=== PATIENT | male | born 1970 | race Caucasian/White ===

== ENCOUNTER 2018-10-27 03:18 | Inpatient (IN) ==
[2018-10-27] MEDS ORDERED: 0.9 % Sodium Chloride 1,000 ML IVC SCH ×2 (08:45→18:51)
[2018-10-27] MEDS ORDERED: Naloxone 0.4 MG/ML INJ IVP PRN ×2 (09:32→18:51)
[2018-10-27] MEDS ORDERED: OXYCODONE Oral CONC 10 MG/0.5 ML ORAL.SYG SL ONE (09:58)
[2018-10-27] MEDS ORDERED: Albuterol 2.5 MG/3 ML NEBULIZER IH PRN ×2 (10:02→18:51)
[2018-10-27] MEDS ORDERED: Acetaminophen 325 MG TABLET PO PRN ×2 (10:05→18:51)
[2018-10-27] MEDS ORDERED: OXYCODONE Oral CONC 10 MG/0.5 ML ORAL.SYG SL PRN ×2 (10:05→10:06)
[2018-10-27] MEDS ORDERED: *HR* HYDROmorphone 2 MG/ML SYRINGE IVP PRN ×2 (10:06→18:51)
[2018-10-27] MEDS ORDERED: Acetaminophen IV 1,000 MG/100 ML INFUS..BTL IVPB ONE (10:07)
[2018-10-27 10:14] LABS: Basophils # 0.1 K/mcL (0.0-0.2); Basophils % 0.5 %; Eosinophils # 0.1 K/mcL (0.0-0.6); Eosinophils % 1.4 %; Hemoglobin 14.5 g/dL (12.9-16.9); Immature Granulocytes % 0.7 % (0-4); Lymphocytes # 2.2 K/mcL (0.6-4.6); Lymphocytes % 21.5 %; Mean Corpuscular HGB Conc 33.7 g/dL (31.6-35.5); Mean Platelet Volume 8.9 fL (9.4-12.4); Monocytes # 0.9 K/mcL (0.0-1.3); Monocytes % 8.6 %; Neutrophils # 6.9 K/mcL (1.6-8.9); Platelet Count 173 K/mcL (140-400); Red Blood Count 4.83 M/mcL (4.19-5.50); Red Cell Distribution Width 13.3 % (11.5-14.5); Segmented Neutrophils % 67.3 %
[2018-10-27] MEDS ORDERED: Nicotine 14 MG PATCH.TD24 TD SCH (10:15)
--- NOTE | 2018-10-27 10:16 | Internal Med History&Physical ---
Date of Encounter: 10/27/18 Time of Encounter: 09:45 Internal Medicine - H&P: HPI Chief complaint: Hip pain Admitted From: Hospital to Hospital Transfer Plans for Post Hospital Care: Transfer Intermediate Facility History of present illness: Mr. Cody is a 48 year old male with hx of IV drug abuse (heroin and meth) transferred from [place] ED with acute hip fracture. Mr Cody stated he currently resides in a drug rehab facility. He was sleeping when he rolled and fell off a top bunk. He landed on his L hip. He was taken to ED and found to have an acute hip fracture. He was transferred to [facility] for orthopedic care. Mr Cody denies significant medical history. He has noticed over the last month that he has been more dyspneic and his feet have been swollen. He has been evalulated in [place] and started on PO Lasix. He says he can walk about 100 yards before getting dyspneic. Denies chest pain. No dizziness. He does snore a lot and has been told he stops breathing at night. Denies HTN, DM, CAD or liver disease. Smoke 5-7 cigarettes a day now. Currently his issue is pain in his left hip. He was given IV pain meds in [place]. He is aware that this is going to affect his current drug rehab. His clinical supervisor contact and service clerks from the facility is present in the room and is aware of patient's need for pain control. He is aware that this will need to be dealt with at the rehab facility. Pt agrees to take opiates in this situation. Past Med Surg Social Fam HX - Past Medical History Medical history: hypertension, other Additional medical history: LOWER LEG EDEMA, REHAB 04/2018, ICE AND HEROIN IV DRUG USE Psychiatric history: anxiety, depression - Past Surgical History Surgical History: orthopedic, other Additional surgical history: rt leg - Social History Smoking Status: Current every day smoker Smokeless Tobacco Status: No Alcohol use: none Drug use: opiates, methamphetamine, IV Drug Use - Additional Family History Additional family history: Denies significant history Internal Medicine - H&P: Meds Sertraline [Zoloft] 50 mg PO DAILY 07/11/18 [History] Furosemide [Lasix] 20 mg PO DAILY #31 tablet 09/28/18 [Rx] Allergy/AdvReac Type Severity Reaction Status Date / Time morphine Allergy Hives Verified 10/27/18 02:24 All Systems PM: A 10-system review of systems was performed and is negative for pertinent findings except as documented above in the HPI. - Constitutional Constitutional: falls, no fatigue, no malaise - EENT Eyes: no dry eye, no loss of vision Ears: no decreased hearing Nose, mouth and throat: no epistaxis, no mouth lesions - Cardiovascular Cardiovascular ROS IM: dyspnea, dyspnea on exertion, no chest pain, no diaphoresis, no irregular heart rhythm, no lightheadedness, no orthopnea, no paroxysmal nocturnal dyspnea - Respiratory Respiratory: dyspnea, dyspnea on exertion, wheezing, snoring, no cough, no chest congestion, no excessive phlegm production, no change in phlegm color - Gastrointestinal Gastrointestinal: no abdominal pain, no diarrhea, no melena - Genitourinary Genitourinary ROS male: no difficulty urinating, no flank pain, no nocturia - Musculoskeletal Musculoskeletal ROS IM: no arthralgias Additional comments: See chief complaint. - Integumentary Integumentary IM: no erythema, no rash - Neurological Neurological ROS: no confusion, no numbness, no tremor(s) - Endocrine Endocrine IM: no excessive sweating, no flushing - Hematologic/Lymphatic Hematologic/Lymphatic: no easy bleeding - Allergic/Immunologic Allergic/Immunologic: no itchy eyes, no uticaria - Constitutional Vitals: Temp Pulse Resp BP Pulse Ox 98.3 F 78 19 117/66 96 10/27/18 07:48 10/27/18 07:48 10/27/18 07:48 10/27/18 07:48 10/27/18 07:48 General appearance: Present: A&O X 3, severe distress Exam: See below - Head Head exam: Present: normocephalic - Eye Eye exam: Present: EOMI, conjuntiva pink - ENT ENT exam: Present: mucous membranes dry - Neck Neck exam general surgery: Present: normal inspection. Absent: thyromegaly - Respiratory Respiratory exam: Present: decreased breath sounds, wheezes Additional comments: No rales or rhonchi. Wheezing present bilaterally -worse on L - Cardiovascular Cardiovascular exam: Present: distant heart sounds, RRR. Absent: +S3, +S4, systolic murmur, tachycardia - GI/Abdominal GI/Abdominal exam: Present: distended, normal bowel sounds, soft. Absent: tenderness - Extremities Exam Extremities exam: Present: tenderness, warm Additional comments: L leg shortened and externally rotated. - Neurological Exam Neurological exam: Present: alert, oriented X3, no focal deficits. Absent: motor sensory deficit - Psychiatric Psychiatric exam: Present: anxious - Skin Skin exam: Present: dry, warm. Absent: rash Internal Med - H&P Results - Impressions ITS Impressions Hip CT 10/27/18 06:53 IMPRESSION: Acute left femoral neck fracture with impaction and anterior apex angulation. D/ / 10/27/2018 09:03:04 Naresh George MD / earnold Interpreting Provider: Naresh George MD - Assessment and plan (1) Impacted fracture of left hip Current Visit: Yes Status: Acute Assessment and plan: Pt presented to ED after fall from a top bunk which resulted in L hip fracture Transferred to [facility] for orthopedic care. Currently only issue is pain. Admit to med surg NPO for surgery today. Pain control - opiates ordered. Pt and clinical supervisor contact and service clerks at drug rehab facility are aware of the risks of doing this. Anticipate will need skilled rehab following surgery. Qualifiers: Encounter type: initial encounter Fracture type: closed Qualified Code(s): S72.092A - Other fracture of head and neck of left femur, initial encounter for closed fracture (2) Fall involving bunk bed as cause of accidental injury Current Visit: Yes Status: Acute Assessment and plan: Pt fell from top bunk this AM resulting in hip fracture. See above. (3) COPD (chronic obstructive pulmonary disease) Current Visit: Yes Status: Suspected Assessment and plan: Pt has not been diagnosed with COPD in the past but clinically appears to be present. He has had progressive dyspnea over last month with associated wheezing. CXR negative EKG normal Will start Azithromycin for antiinflammatory effect Steroids IV today and follow with 4 days of PO prednisone Duonebs ordered. Echo ordered due to edema (? related to pulmonary HTN/R heart failure). Qualifiers: COPD type: COPD with acute exacerbation Qualified Code(s): J44.1 - Chronic obstructive pulmonary disease with (acute) exacerbation (4) NEIDA (obstructive sleep apnea) Current Visit: Yes Status: Suspected Assessment and plan: Pt relates snorning and apnea. Will need at least nocturnal oxygen study prior to discharge. (5) Tobacco abuse Current Visit: Yes Status: Chronic Assessment and plan: Nicotine patch ordered. Cessation counselling. - Time Spent With Patient Total time spent is greater than 50% in coordination of care (as documented) at patient's floor/unit and/or counseling patient: - VTE Documentation of Mechanical Device: Venous foot pump, device
[2018-10-27 10:34] LABS: BUN/Creatinine Ratio 25 (6-26); Blood Urea Nitrogen 19 mg/dL (6-20); Calcium 8.5 mg/dL (8.6-10.3); Carbon Dioxide 25 mEq/L (23-29); Chloride 108 mEq/L (98-107); Glucose 112 mg/dL (70-105); Osmolality,Calculated 295 (280-300); Potassium 4.5 mEq/L (3.5-5.1); Sodium 141 mEq/L (136-145); eGFR For Non-African Americans > 60 (> 60)
[2018-10-27] MEDS: MethylPREDNISolone 40 MG/ML VIAL IVP SCH ×2 (10:49→19:02)
[2018-10-27] MEDS ORDERED: Azithromycin 500 MG in D5% in Water 250 ML IVPB SCH (11:00)
[2018-10-27] MEDS ORDERED: Perflutren Lipid Microsphere 1.3 ML in 0.9 % Sodium Chloride 8.7 ML IVP ONE ×2 (11:45→18:51)
[2018-10-27] MEDS: Ipratropium/Albuterol Neb 3 ML IH SCH ×3 (11:45→21:51)
[2018-10-27] MEDS ORDERED: Ethanol\\Acetic Acid\\Na Ace\\Ben 1,000 ML IRRIG.SOLN IR ONE (13:21)
--- NOTE | 2018-10-27 13:36 | Anesthesia Evaluation PreOp ---
Date of Encounter: 10/27/18 Time of Encounter: 13:34 - Past History Planned Operation: L-Robotic Hip Cardiac History: HTN Pulmonary History: Smoker (<1ppd), COPD, Snore, NEIDA Dx (Not formally Dx), Other (Recent reports of TURPIN and BLE swelling over past month) CORPORATE ACCOUNTANT History: Other (Anxiety/depression) Other Medical History: Denies Any Significant HX Anesthesia History: No Prior Anesthetic Complications, Past Anesthesia (R-ankle) Alcohol Use: none Drug use: opiates, methamphetamine, IV Drug Use (Heroin & Meth (Pt currently resides in Drug Rehab Facility)) Medications and Allergies Sertraline [Zoloft] 50 mg PO DAILY 07/11/18 [History] Furosemide [Lasix] 20 mg PO DAILY #31 tablet 09/28/18 [Rx] Allergy/AdvReac Type Severity Reaction Status Date / Time morphine Allergy Hives Verified 10/27/18 02:24 - Meds/Allergy Pre-op Review Medications Reviewed: Yes Allergies Reviewed: Yes Beta Blockers on Current Med List: No Anesthesia Results - Labs 10/27/18 09:54 10/27/18 09:54 Laboratory Tests 10/27/18 10/27/18 10/27/18 03:02 09:54 09:54 WBC 10.2 Hgb 14.5 Hct 43.0 Plt Count 173 INR 0.9 Sodium 141 Potassium 4.5 Chloride 108 H Carbon Dioxide 25 BUN 19 Creatinine 0.76 Est GFR (Non-Af Amer) > 60 Calcium 8.5 L Laboratory Results Impressions Hip CT 10/27/18 06:53 IMPRESSION: Acute left femoral neck fracture with impaction and anterior apex angulation. D/ / 10/27/2018 09:03:04 Naresh George MD / earnold Interpreting Provider: Naresh George MD - Imaging EKG: image reviewed (76bpm - SINUS RHYTHM POSSIBLE RIGHT VENTRICULAR CONDUCTION DELAY Electronically Signed On 09-15-2018 15:59:55 EST by Leia Barnes) Anesthesia Exam Vital Signs Temp Pulse Resp BP Pulse Ox 10/27/18 11:45 14 112/73 96 10/27/18 11:16 98.8 F 87 17 112/73 96 10/27/18 10:26 98 F 87 18 125/76 95 10/27/18 07:48 98.3 F 78 19 117/66 96 10/27/18 05:34 98.5 F 72 16 135/78 95 Intake and Output 10/26/18 10/27/18 10/27/18 23:59 07:59 15:59 Intake Total 0 / 0 350 / 350 Balance 0 / 0 350 / 350 Intake: IV Fluids 350 / 350 Ofirmev 1,000 mg/100 ml 1,000 100 / 100 mg In 100 ml @ 400 mls/hr IVPB ONCE ONE Rx#:[id number] Zithromax 500 mg In Dextrose 5% 250 / 250 250 ML @ 252 mls/hr IVPB Q24H [facility] Rx#:[id number] Oral 0 / 0 0 / 0 Other: Meal Breakfast Percent of Meal Consumed 0% Weight 125.9 kg Patient Weight 10/27/18 23:59 Weight 125.9 kg Height: 5'10" Weight: 277# BMI = 40 NPO (# of Hours): MNoc - HEENT Pupil (Motor): Pupils equal, EOMI Mallampati: III Teeth: Edentulous Oral Opening: Greater than 3 - CORPORATE ACCOUNTANT LOC: Oriented CORPORATE ACCOUNTANT Motor: Normal RUE, Normal LUE, Normal RLE, Normal Face, Deficit LLE CORPORATE ACCOUNTANT Sensory: Normal: RUE, LUE, RLE, Face, Deficit: LLE - Cardiac Rhythm: Regular Murmur: None - Pulmonary Breath Sounds: bilateral Clear Respiratory Effort: Symmetrical Anesthesia Assess/Plan ASA Score: 3 (MO/ BMI = 40, Smoker, IVDA, NEIDA) Level of consciousness: Cooperative, Oriented, Tranquil Anesthetic Plan: General, Spinal Autologous Blood: Yes Anes Supervising Prov Stmt: PT seen/evaluated, R&B Discussed, questions answered and consent obtained. Mildred Campbell MD
[2018-10-27] MEDS ORDERED: *HR* FentaNYL (PF) 100 MCG/2 ML VIAL ONE (14:07)
[2018-10-27] MEDS ORDERED: *HR* Midazolam HCl 2 MG/2 ML VIAL ONE (14:07)
[2018-10-27] MEDS ORDERED: Ipratropium/Albuterol Neb 3 ML IH ONE (14:16)
[2018-10-27] MEDS ORDERED: KETAMINE HCL 50 MG/ML SYRINGE IV ONE ×2 (15:03→15:20)
[2018-10-27] MEDS ORDERED: *HR* Propofol 200 MG/20 ML VIAL IVP ONE ×2 (15:06→15:07)
[2018-10-27] MEDS ORDERED: Lidocaine -MPF 2% 2 ML VIAL ONE (15:06)
[2018-10-27] MEDS ORDERED: *HR* Succinylcholine 200 MG/10 ML VIAL IVP ONE (15:07)
--- NOTE | 2018-10-27 15:22 | Orthopedics Progress Note ---
Date of Encounter: 10/27/18 Time of Encounter: 15:20 Subjective Interval history: Patient seen this morning, patient with history of intravenous drug abuse,The patient reports being 6 months in recovery, patient fell off the top bunk at a rehabilitation facility. Patient denies head trauma. Patient presented to the ER with left hip pain. Initially the patient was oversedated when evaluated later this afternoon the patient was alert and oriented 3. Well-nourished well-developed moderate distress Left lower extremity shortened and external rotated Neurovascular intact Decreased range of motion secondary to pain X-rays reviewed show a displaced left femoral neck fracture. Based on the patient's age and significant history patient is recommended for left total hip replacement. Patient would like to the performed robotically. This requires a roland implant. Patient just wants to be out of hip pain. We reviewed the risks and benefits as well as recovery. All questions were answered. The patient agreed to this treatment plan and acknowledged an understanding of the treatment plan as described. Objective Vital signs: Vital Signs Temp Pulse Resp BP Pulse Ox 10/27/18 14:22 14 93 10/27/18 11:45 14 112/73 96 10/27/18 11:16 98.8 F 87 17 112/73 96 10/27/18 10:26 98 F 87 18 125/76 95 10/27/18 07:48 98.3 F 78 19 117/66 96 10/27/18 05:34 98.5 F 72 16 135/78 95 Intake and Output 10/26/18 10/27/18 10/27/18 23:59 07:59 15:59 Intake Total 0 / 0 350 / 350 Balance 0 / 0 350 / 350 Intake: IV Fluids 350 / 350 Ofirmev 1,000 mg/100 ml 1,000 100 / 100 mg In 100 ml @ 400 mls/hr IVPB ONCE ONE Rx#:[id number] Zithromax 500 mg In Dextrose 5% 250 / 250 250 ML @ 252 mls/hr IVPB Q24H [facility] Rx#:[id number] Oral 0 / 0 0 / 0 Other: Meal Breakfast Percent of Meal Consumed 0% Weight 125.9 kg Patient Weight 10/27/18 23:59 Weight 125.9 kg - Labs CBC & BMP: 10/27/18 09:54 10/27/18 09:54 Labs: Abnormal lab results MPV 8.9 fL (9.4-12.4) L 10/27/18 09:54 Chloride 108 mEq/L (98-107) H 10/27/18 09:54 Glucose 112 mg/dL (70-105) H 10/27/18 09:54 Calcium 8.5 mg/dL (8.6-10.3) L 10/27/18 09:54 - VTE Documentation of Mechanical Device: Venous foot pump, device Consult Discharge Plan - Plan Referrals: NONE,PCP [Primary Care Provider] -
--- NOTE | 2018-10-27 15:24 | Orthopedic Consult Note ---
Date of Encounter: 10/27/18 Time of Encounter: 08:25 Assessment and Plan (1) Fall involving bunk bed as cause of accidental injury Current Visit: Yes Status: Acute (2) Impacted fracture of left hip Current Visit: Yes Status: Acute Qualifiers: Encounter type: initial encounter Fracture type: closed Qualified Code( s): S72.092A - Other fracture of head and neck of left femur, initial encounter for closed fracture History of Present Illness Chief complaint: left hip fx HPI: Mr. Cody is a 48 year old male presents [facility] for left hip pain after falling out of top bunk and landing on hard floor. states that he was sleeping and when he awoke he had severe left hip pain and could not move. Denies history of broken bones or easy fractures. Patient is alert and oriented x 3. States he is in severe pain to the LLE. Obvious deformity noted on exam Tenderness to motion Neurovascualrly intact CT/CT OMI hip lt wo con IMPRESSION: Acute left femoral neck fracture with impaction and anterior apex angulation. D/ / 10/27/2018 09:03:04 Naresh George MD / eduardo Assessment Left hip fracture Plan Left hip total replacement for left hip fracture CT Omi completed Risks reviewed - patient denies any other concerns NPO Pain control prn via hospitalist Labs and ua and ekg ordered for preop Thank you for this consultation. Past Med Surg Social Fam HX - Past Medical History Medical history: hypertension, other Additional medical history: LOWER LEG EDEMA, REHAB 04/2018, ICE AND HEROIN IV DRUG USE Psychiatric history: anxiety, depression - Past Surgical History Surgical History: orthopedic, other Additional surgical history: rt leg - Social History Smoking Status: Current every day smoker Smokeless Tobacco Status: No Alcohol use: none Drug use: opiates, methamphetamine, IV Drug Use (Heroin & Meth (Pt currently resides in Drug Rehab Facility)) Medications and Allergies Sertraline [Zoloft] 50 mg PO DAILY 07/11/18 [History] Furosemide [Lasix] 20 mg PO DAILY #31 tablet 09/28/18 [Rx] Allergy/AdvReac Type Severity Reaction Status Date / Time morphine Allergy Hives Verified 10/27/18 02:24 All Systems Reviewed: The remainder of the systems were reviewed and are negative Physical Exam - Constitutional Vitals: Temp Pulse Resp BP Pulse Ox 98.8 F 87 14 112/73 93 10/27/18 11:16 10/27/18 11:16 10/27/18 14:22 10/27/18 11:45 10/27/18 14:22 Results - Labs Result Diagrams: 10/27/18 09:54 10/27/18 09:54 Labs: Abnormal lab results MPV 8.9 fL (9.4-12.4) L 10/27/18 09:54 Chloride 108 mEq/L (98-107) H 10/27/18 09:54 Glucose 112 mg/dL (70-105) H 10/27/18 09:54 Calcium 8.5 mg/dL (8.6-10.3) L 10/27/18 09:54 H & H 10/27/18 Range/Units 09:54 Hgb 14.5 (12.9-16.9) g/dL Hct 43.0 (37.5-50.1) % All other labs normal. Consult Discharge Plan - Plan Referrals: NONE,PCP [Primary Care Provider] -
[2018-10-27] MEDS ORDERED: Dexamethasone 4 MG/ML VIAL ONE (16:06)
[2018-10-27] MEDS ORDERED: Ondansetron 4 MG/2 ML VIAL ONE (16:06)
--- NOTE | 2018-10-27 16:14 | Anesthesia Procedures ---
Date of Encounter: 10/27/18 Time of Encounter: 15:35 Procedures: Anesthesia - Epidural/Spinal Patient ID/Chart reviewed: Yes Patient examined: Yes Consent Obtained: Yes Supplemental Oxygen: Mask Supplemental Oxygen Rate (L/min): 6 Sedation: Versed (mg): 2 Sedation: Fentanyl (mcg): 100 Site Prep: Aseptic Technique Patient position: right lateral decubitus Local Anesthetic: Lidocaine 1% Amount of Local Anesthetic used: 3 Interspace Used: L2-L3 Blood: No CSF: Yes Paresthesia: No Spinal Needle Gauge: 22 (25G Pencar attempt x 2. Successful SAB w/ 22G x 120mm Sprotte) Spinal Dose: Fentany 25mcg + 3mL x 0.05% Bupivicaine Procedure: Robotic L-total hip Vitals + FHT's: Vital Signs/O2 Sat/Glucose, Most Current Pulse Resp BP Pulse Ox 10/27/18 15:35 82 14 129/88 95 15:25 89 146/100 95 14:22 14 93 Anes Supervising Prov Stmt: Pt tolerated procedure well and without immediate complications. Mildred Campbell MD
[2018-10-27] MEDS ORDERED: Acetaminophen IV 1,000 MG/100 ML INFUS..BTL ONE (16:23)
--- NOTE | 2018-10-27 16:44 | Orthopedic Operative Note ---
Date of procedure: 10/27/18 Pre-op diagnosis: Displaced left femoral neck fracture Post-op diagnosis: same Procedure: Procedure: Left Total Hip Replacment robotic-assisted Estimated blood loss: 500 cc Hardware: Metal and polyethylene replacement. [place] DM Cup: 54 cup Femoral size 9 stem Head: 8 head with Holly LINDA drain Procedural Notes: Displaced femoral neck fracture, procedure performed with robotic assistance. 17 mm short operative versus nonoperative leg is measured by preoperative CT scan Operative procedure: The patient was brought to the operating room and placed on the operating room table. After general anesthesia was administered the patient was placed in the lateral decubitus position with the operative leg up. All pressure points were padded appropriately and the head was stabilized in the neutral position. The operative extremity was prepped and draped in the sterile surgical fashion patient received IV antibiotic prior to skin incision. 3 Steinmann pins were placed in the iliac crest 3 cm proximal to the anterior superior iliac spine this was for the robotic-assisted sensor. This was done through a small 2 cm incision. A standard posterior approach is made to the operative hip, the incision was made through the skin and subcutaneous tissue hemostasis was obtained with Bovie cautery. Using careful sharp dissection the fascia was identified and incised exposing the external rotators. The greater trochanter was marked, and length was measured at this time utilizing robotic assistance. The external rotators were released off the greater trochanter and tagged with #2 FiberWire suture. The capsule was T'd open and the hip was brought into internal rotation. The patient had a displaced fracture femoral neck, The femoral neck cut was made at the appropriate level roughly 15 mm proximal to the lesser trochanter aced on preoperative templating. An anterior capsulotomy was performed for the anterior retractor. Soft tissues removed from the acetabulum. The acetabulum reference point was confirmed. The acetabulum was then mapped with robotic assistance. Based on the preoperative plan the acetabulum was reamed in one step with a 53 reamer. The 54 acetabulum was impacted with robotic assistance and 41 degrees of abduction and 17 degrees of anteversion. The hip was brought back in to internal rotation and prepared with the box car washer followed by the canal finder followed by the reaming process to a size 9/10 broaching process in 20 degrees anteversion. It was broached up to the appropriate size 9 Trial reduction revealed leg lengths close to normal. The femoral implant was impacted in place in 20 degrees of anteversion. Trial reduction found the hip to be stable with 8 head and Holly. The trials were removed and the real implants were impacted in place. The hip was reduced, patient had robotic confirmed leg length of 3 mm longer than the contralateral side. The hip had excellent stability with forward flexion to 90 degrees adduction of 30 degrees and internal rotation of 60 degrees. The hip had no shuck. The hip sat with an antibacterial solution. It was irrigated out with 2 L of pulse irrigation. The Steinmann pins were removed. The hip was closed by the PA. Over a LINDA drain The deep tissue was irrigated and closed deep with #1 PDS suture superficially with 0 PDS suture and skin was closed with Dermabond and zip tie. The patient was placed in a sterile dressing and abduction pillow. The patient was extubated and transferred to the recovery room in stable condition. Anesthesia: GETA, spinal Surgeon: Vince Velazquez Was there an assistant project manager present: No Estimated blood loss (cc): 500 Condition: stable Disposition: PACU
--- NOTE | 2018-10-27 17:00 | Event Note ---
Date of Encounter: 10/27/18 Time of Encounter: 16:59 Pt had hip replacement today. Echo shows EF 45-50%. No prior echo. Pt started on Lisinopril and Coreg.
--- NOTE | 2018-10-27 18:19 | Anesthesia Evaluation Post Op ---
Addendum entered and electronically signed by Celina Zacarias CRNA 10/29/18 09:10: author also Original Note: Date of Encounter: 10/27/18 Time of Encounter: 18:18 - Vital Signs Vital Signs: Vital Signs - Last 8 Hours Temp Pulse Resp BP Pulse Ox 10/27/18 18:10 98 F 80 16 114/80 97 10/27/18 18:00 98 F 82 16 107/71 100 10/27/18 17:50 77 16 126/67 100 10/27/18 17:40 75 16 123/89 100 10/27/18 17:30 98 F 81 18 106/64 98 10/27/18 15:41 89 146/100 95 10/27/18 14:22 14 93 10/27/18 11:45 14 112/73 96 10/27/18 11:16 98.8 F 87 17 112/73 96 10/27/18 10:26 98 F 87 18 125/76 95 Intake and Output 10/27/18 10/27/18 10/27/18 07:59 15:59 23:59 Intake Total 0 / 0 350 / 350 Output Total 600 / 600 Balance 0 / 0 350 / 350 -600 / -600 Intake: IV Fluids 350 / 350 Ofirmev 1,000 mg/100 ml 1,000 100 / 100 mg In 100 ml @ 400 mls/hr IVPB ONCE ONE Rx#:[id number] Zithromax 500 mg In Dextrose 5% 250 / 250 250 ML @ 252 mls/hr IVPB Q24H [facility] Rx#:[id number] Oral 0 / 0 0 / 0 Output: Estimated Blood Loss 500 / 500 Wound Drainage 100 / 100 Other: Meal Breakfast Percent of Meal Consumed 0% Weight 125.9 kg Patient Weight 10/27/18 23:59 Weight 125.9 kg - Lungs Lungs: Clear Ascult./Percussion - Airway Airway: Non-obstructed - Cardiovascular Regular Rate, Baseline Rhythm - Mental Status Mental Status: Alert & Oriented, Answers Appropriately - Pain Pain Scale: 0 Pain Scale used: Numeric (1 - 10) - Nausea Vomiting Nausea Vomiting: Not Present - Hydration Hydration: Ice chips - Discharge PostOp Status: Transfer Patient to floor
[2018-10-27 18:23] LABS: Hematocrit 39.7 % (37.5-50.1); Hemoglobin 13.1 g/dL (12.9-16.9)
[2018-10-27] MEDS ORDERED: Sennosides 8.6 MG TABLET PO PRN (18:51)
[2018-10-27] MEDS ORDERED: *HR* Promethazine 25 MG/ML VIAL IVP PRN (18:51)
[2018-10-27] MEDS ORDERED: Ondansetron 4 MG/2 ML VIAL IVP PRN (18:51)
[2018-10-27] MEDS ORDERED: MOM Conc 10 ML UD.LIQ PO PRN (18:51)
[2018-10-27] MEDS ORDERED: Temazepam 15 MG CAPSULE PO PRN (18:51)
[2018-10-27] MEDS ORDERED: ceFAZolin 3,000 MG in 0.9 % Sodium Chloride 100 ML IVPB SCH (18:51)
[2018-10-27] MEDS ORDERED: Ringers Solution, Lactated 1,000 ML IVC SCH (18:51)
[2018-10-27] MEDS: Ascorbic Acid 500 MG TABLET PO SCH (20:34)
[2018-10-27] MEDS: OXYCODONE Oral CONC 10 MG/0.5 ML ORAL.SYG SL PRN (22:27)
[2018-10-28] MEDS: ceFAZolin 3,000 MG in 0.9 % Sodium Chloride 100 ML IVPB SCH ×2 (01:19→09:20)
[2018-10-28] MEDS: Ipratropium/Albuterol Neb 3 ML IH SCH ×4 (04:43→22:08)
[2018-10-28] MEDS: OXYCODONE Oral CONC 10 MG/0.5 ML ORAL.SYG SL PRN ×3 (05:03→19:50)
[2018-10-28] MEDS ORDERED: *HR* Enoxaparin 30 MG/0.3 ML SYRINGE SQ SCH (06:00)
[2018-10-28 06:07] LABS: Hematocrit 31.3 % (37.5-50.1)
[2018-10-28 06:08] LABS: Hemoglobin 10.7 g/dL (12.9-16.9)
--- NOTE | 2018-10-28 08:09 | Orthopedics Progress Note ---
Date of Encounter: 10/28/18 Time of Encounter: 08:08 Subjective Interval history: Patient was seen this morning doing well without complaints. Afebrile vital signs stable. Operative extremity: Neurovascularly intact Dressing clean dry and intact Calves nontender Assessment and plan: Continue with postoperative care Hematocrit 31 plan to DC LINDA tomorrow. Objective Vital signs: Vital Signs Temp Pulse Resp BP Pulse Ox 10/28/18 04:43 20 94 10/28/18 04:04 97.7 F 98 16 97/41 94 10/27/18 22:57 97.9 F 80 17 129/75 98 10/27/18 21:51 18 94 10/27/18 19:32 98.3 F 84 15 114/66 94 10/27/18 18:31 97.9 F 85 18 103/72 95 10/27/18 18:10 98 F 80 16 114/80 97 10/27/18 18:00 98 F 82 16 107/71 100 10/27/18 17:50 77 16 126/67 100 10/27/18 17:40 75 16 123/89 100 10/27/18 17:30 98 F 81 18 106/64 98 10/27/18 15:41 89 146/100 95 10/27/18 14:22 14 93 10/27/18 11:45 14 112/73 96 10/27/18 11:16 98.8 F 87 17 112/73 96 10/27/18 10:26 98 F 87 18 125/76 95 Intake and Output 10/27/18 10/28/18 10/28/18 23:59 07:59 15:59 Output Total 1165 / 1165 570 / 570 Balance -1165 / -1165 -570 / -570 Output: Urine 200 / 200 375 / 375 Estimated Blood Loss 500 / 500 Wound Drainage 465 / 465 195 / 195 Left Hip 365 / 365 195 / 195 - Labs CBC & BMP: 10/28/18 04:50 10/27/18 09:54 Labs: Abnormal lab results Hgb 10.7 g/dL (12.9-16.9) L D 10/28/18 04:50 Hct 31.3 % (37.5-50.1) L 10/28/18 04:50 MPV 8.9 fL (9.4-12.4) L 10/27/18 09:54 Chloride 108 mEq/L (98-107) H 10/27/18 09:54 Glucose 112 mg/dL (70-105) H 10/27/18 09:54 Calcium 8.5 mg/dL (8.6-10.3) L 10/27/18 09:54 - VTE Documentation of Mechanical Device: Venous foot pump, device Consult Discharge Plan - Plan Referrals: NONE,PCP [Primary Care Provider] -
[2018-10-28] MEDS ORDERED: Melatonin 3 MG TABLET PO PRN (08:29)
[2018-10-28] MEDS ORDERED: traZODone 50 MG TABLET PO PRN (08:29)
[2018-10-28] MEDS: Ascorbic Acid 500 MG TABLET PO SCH ×2 (09:19→16:20)
[2018-10-28] MEDS: Acetaminophen 325 MG TABLET PO SCH ×4 (09:19→21:49)
[2018-10-28] MEDS: Multivit/Ca/Min/Fe/FA 1 TAB TABLET PO SCH (09:19)
[2018-10-28] MEDS: Nicotine 14 MG PATCH.TD24 TD SCH (09:20)
[2018-10-28 10:00] LABS: Bilirubin,Urine Negative (Negative); Blood,Urine Negative (Negative); Clarity,Urine Clear (Clear); Color,Urine Yellow (Yellow); Glucose,Urine (UA) >=1000 mg/dL (Normal); Ketones,Urine Negative (Negative); Leukocyte Esterase,Urine Negative (Negative); Nitrite,Urine Negative (Negative); Protein,Urine Negative (Neg-Trace); Specific Gravity,Urine 1.027 (1.010-1.025); Urobilinogen,Urine Normal (Normal)
[2018-10-28] MEDS ORDERED: Azithromycin 500 MG in D5% in Water 250 ML IVPB SCH (11:00)
[2018-10-28] MEDS: Ketorolac 15 MG/ML VIAL IVP PRN ×2 (11:13→18:51)
--- NOTE | 2018-10-28 12:16 | Event Note ---
Date of Encounter: 10/28/18 Time of Encounter: 11:40 PCR - POD#1 s/p Left Total Hip Replacment robotic-assisted 10/27/18 Patient seen at bedside, without complaints. A&O x 3 Afebrile, vital signs stable. Dressings c/d/i. LINDA drain in place currently with roughly 75ml bloody drainage. Documentation states 365ml yesterday, 195ml so far today. Will plan to DC drain tomorrow if output decreases Labs reviewed. H/H - 10.7/31.3 stable, asymptomatic Pain control: inadequate at the moment but he is due for next dose of oxycodone, will have nurse reassess pain level after this next dose. will add lidoderm patch if pain still not controlled Participating in PT. All questions and concerns addressed. Educated on use of incentive spirometer. Encouraged ambulation and proper hydration. Patient educated on post-operative restrictions and post-operative care. Assessment and plan: Continue with postoperative care Discharge plan: home with when discharged
--- NOTE | 2018-10-28 16:04 | Internal Med Progress Note ---
Hospitalist Progress Note - Encounter Date of Encounter: 10/28/18 Time of Encounter: 16:01 - Subjective Interval History: Pt states he is having pain and difficult time moving around. States he was able to get up with therapy but it was painful. Is SOB w cough but improved from yesterday. - Exam Vitals: Temp Pulse Resp BP Pulse Ox 98.6 F 98 13 133/79 96 10/28/18 12:45 10/28/18 12:45 10/28/18 12:45 10/28/18 12:45 10/28/18 12:45 Exam: General: NAD, good eye contact Thoracic: does have expiratory wheezing Cardio: Normal S1 and S2, regular rate and rhythm Abdomen: Soft, nontender, nondistended Extremities: Warm, well perfused. DP pulses 2+ b/l. No edema. L lateral thigh with horizontal incision w drain in place draining serosanguinous fluid Neuro: Awake, fully oriented. Speech fluent - Summary of Assessment and Plan Summary of Assessment and Plan: Marcus Cody is a 48 M w hx smoker, polysubstance abuse including IVDA, COPD, obesity, who p/w L hip pain after a fall, XR showing broken L hip, taken to OR 10/27 by Ortho for L TARUN. L hip fx s/p TARUN 10/27: - Ortho following, appreciate recs - drain in place, leave today given output - start xarelto 10 daily tomorrow - PT/OT working w patient, able to ambulate briefly today COPD: new dx for patient, will need outpatient f/u and PFTs - stop steroids due to surgery above - continue nebs and azithro Acute blood loss anemia: following surgery, not symptomatic, will monitor Smoker: nicotine patch offered Hx IVDA and polysubstance abuse (heroin, meth)(poa): currently in group residence for drug treatment, will significantly limit opioids today now pt is post-op - d/c dilaudid iv - limit oxy to 5 q6h prn breakthrough - start tylenol 1g qid prn first line - start toradol 15 q6h second line Per PT/OT, plan for d/c to SNF for rehab prior to returning back to group drug rehab facility - Time Spent with Patient Total time spent is greater than 50% in coordination of care (as documented) at patient's floor/unit and/or counseling patient: Internal Medicine: Result - Labs CBC & Chem 7: 10/28/18 04:50 10/27/18 09:54 Labs: Short CBC 10/27/18 10/28/18 Range/Units 17:55 04:50 Hgb 13.1 10.7 L D (12.9-16.9) g/dL Hct 39.7 31.3 L (37.5-50.1) % Urine 10/28/18 Range/Units 08:10 Urine Color Yellow (Yellow) Urine Clarity Clear (Clear) Urine pH 6.0 (5.0-8.0) pH Units Ur Specific [place] 1.027 H (1.010-1.025) Urine Protein Negative (Neg-Trace) mg/dL Urine Glucose (UA) >=1000 H (Normal) mg/dL - Impressions Impressions Hip CT 10/27/18 06:53 IMPRESSION: Acute left femoral neck fracture with impaction and anterior apex angulation. D/ / 10/27/2018 09:03:04 Naresh George MD / [facility] Interpreting Provider: Naresh George MD Echocardiogram 10/27/18 10:01 Impressions: LVEF 45-50%. Mild left ventricular diastolic dysfunction. Right ventricle was not well visualized but appears grossly normal Unable to estimate RVSP due to lack of TR jet. No obvious significant valvular dysfunction. Left Ventricular Wall Motion: Rest Echo Findings The apex, apical inferior, mid inferior, basal inferior, apical anterior, mid anterior, basal anterior, apical septal, mid inferior septal, basal inferior septal, apical lateral, mid anterior lateral, basal anterior lateral, mid anterior septal, mid inferior lateral, basal anterior septal and basal inferior lateral casarez were hypokinetic. Findings: Study Quality * Technically sub-optimal due to poor echocardiographic windows. ECG Findings * Normal sinus rhythm. Left Ventricle * LVEF 45-50%. * Mild left ventricular diastolic dysfunction. * Definity echo contrast was used. Right Ventricle * Right ventricle was not well visualized but appears grossly normal Left Atrium * Normal left atrial size. Right Atrium * Normal right atrial size. Interatrial Septum * Interatrial septum not well evaluated. Aortic Valve * Aortic valve not well visualized. * No aortic regurgitation. * No aortic stenosis. Mitral Valve * No mitral regurgitation. * No mitral stenosis. * Mitral valve not well visualized. Tricuspid Valve * Unable to estimate RVSP due to lack of TR jet. * No tricuspid stenosis. * Trace tricuspid regurgitation. * Tricuspid valve not well visualized. Pulmonic Valve * Pulmonic valve is not well visualized. Aorta * Normally sized aortic root. Pericardium * The pericardium appears normal. IVC * The IVC is not well evaluated. Pulmonary Artery * Pulmonary artery not well visualized. Hip X-Ray 10/27/18 13:54 IMPRESSION: Baseline study status post left hip arthroplasty. No evidence of acute postoperative complication. D/ / 10/27/2018 17:59:01 Sunny Gomez MD / [facility] Interpreting Provider: Sunny Gomez MD - VTE Documentation of Mechanical Device: Venous foot pump, device Consult Discharge Plan - Plan Referrals: NONE,PCP [Primary Care Provider] -
--- NOTE | 2018-10-28 21:16 | Electrocardiograph Report ---
[address] [place], [place] [address] Test Date: 2018-10-27 Pat Name: Marcus Cody Department: 114 Room: [facility] Gender: M Certified Legal Investigator: : [id number] Requested By: Elda Parsons Order Number: [id number] Reading MD: Leia Barnes Measurements Intervals [place] Rate: 80 P: 39 AR: 157 QRS: 44 QRSD: 98 T: 39 QT: 366 QTc: 402 Interpretive Statements SINUS RHYTHM Electronically Signed On 10-28-2018 21:15:11 EST by Leia Barnes
[2018-10-28] MEDS: Furosemide 20 MG TABLET PO SCH (21:49)
[2018-10-28] MEDS: Budesonide/Formoterol 160/4.5 1 PUFF INH IH SCH (22:07)
[2018-10-29] MEDS: Ketorolac 15 MG/ML VIAL IVP PRN ×3 (01:07→18:20)
[2018-10-29] MEDS: OXYCODONE Oral CONC 10 MG/0.5 ML ORAL.SYG SL PRN ×3 (02:17→21:13)
[2018-10-29] MEDS ORDERED: OXYCODONE Oral CONC 10 MG/0.5 ML ORAL.SYG SL ONE (03:46)
[2018-10-29 04:37] LABS: Hematocrit 27.6 % (37.5-50.1); Hemoglobin 9.4 g/dL (12.9-16.9); Mean Corpuscular HGB Conc 34.1 g/dL (31.6-35.5); Mean Corpuscular Hemoglobin 30.2 pg (28.0-33.3); Mean Corpuscular Volume 88.7 fL (83.0-100.0); Mean Platelet Volume 9.2 fL (9.4-12.4); Platelet Count 154 K/mcL (140-400); Red Blood Count 3.11 M/mcL (4.19-5.50); Red Cell Distribution Width 13.9 % (11.5-14.5)
[2018-10-29] MEDS: Ipratropium/Albuterol Neb 3 ML IH SCH ×4 (04:41→22:44)
[2018-10-29 04:53] LABS: BUN/Creatinine Ratio 23 (6-26); Blood Urea Nitrogen 17 mg/dL (6-20); Calcium 7.8 mg/dL (8.6-10.3); Carbon Dioxide 26 mEq/L (23-29); Chloride 105 mEq/L (98-107); Glucose 107 mg/dL (70-105); Osmolality,Calculated 288 (280-300); Potassium 3.8 mEq/L (3.5-5.1); Sodium 138 mEq/L (136-145); eGFR For Non-African Americans > 60 (> 60)
--- NOTE | 2018-10-29 06:40 | Orthopedics Progress Note ---
Date of Encounter: 10/29/18 Time of Encounter: 06:39 - Assessment and Plan (1) Acute blood loss anemia Current Visit: Yes Status: Acute Subjective Interval history: Patient was seen this morning doing well without complaints. Afebrile vital signs stable. Operative extremity: Neurovascularly intact Dressing clean dry and intact Calves nontender Assessment and plan: Continue with postoperative care [id number] DC drain stable for discharge Objective Vital signs: Vital Signs Temp Pulse Resp BP Pulse Ox 10/29/18 04:41 18 94 10/29/18 03:27 98.0 F 87 16 101/63 93 10/29/18 01:22 97.9 F 88 16 104/66 95 10/28/18 22:15 16 99 10/28/18 21:49 90 10/28/18 19:01 97.9 F 98 16 103/62 96 10/28/18 16:46 97.4 F L 101 16 106/59 96 10/28/18 12:45 98.6 F 98 13 133/79 96 10/28/18 10:46 16 96 10/28/18 09:54 98.2 F 100 14 133/79 98 10/28/18 08:27 98.1 F 96 14 116/71 94 Intake and Output 10/28/18 10/28/18 10/29/18 15:59 23:59 07:59 Output Total 150 / 150 415 / 415 445 / 445 Balance -150 / -150 -415 / -415 -445 / -445 Output: Urine 350 / 350 350 / 350 Wound Drainage 150 / 150 65 / 65 95 / 95 Left Hip 150 / 150 65 / 65 95 / 95 - Labs CBC & BMP: 10/29/18 04:05 10/29/18 04:05 Labs: Abnormal lab results RBC 3.11 M/mcL (4.19-5.50) L 10/29/18 04:05 Hgb 9.4 g/dL (12.9-16.9) L 10/29/18 04:05 Hct 27.6 % (37.5-50.1) L 10/29/18 04:05 MPV 9.2 fL (9.4-12.4) L 10/29/18 04:05 Glucose 107 mg/dL (70-105) H 10/29/18 04:05 Calcium 7.8 mg/dL (8.6-10.3) L 10/29/18 04:05 Ur Specific [place] 1.027 (1.010-1.025) H 10/28/18 08:10 Urine Glucose (UA) >=1000 mg/dL (Normal) H 10/28/18 08:10 - VTE Documentation of Mechanical Device: Venous foot pump, device Consult Discharge Plan - Plan Referrals: NONE,PCP [Primary Care Provider] -
[2018-10-29] MEDS: *HR* Rivaroxaban 10 MG TABLET PO SCH (06:53)
[2018-10-29] MEDS ORDERED: predniSONE 20 MG TABLET PO SCH ×2 (09:00)
[2018-10-29] MEDS: Ascorbic Acid 500 MG TABLET PO SCH ×2 (09:35→17:26)
[2018-10-29] MEDS: Furosemide 20 MG TABLET PO SCH (09:36)
[2018-10-29] MEDS: Nicotine 14 MG PATCH.TD24 TD SCH (09:37)
[2018-10-29] MEDS: Multivit/Ca/Min/Fe/FA 1 TAB TABLET PO SCH (09:38)
[2018-10-29] MEDS: Acetaminophen 325 MG TABLET PO SCH ×4 (09:38→21:14)
[2018-10-29] MEDS: Azithromycin 250 MG TABLET PO SCH (09:40)
[2018-10-29] MEDS: Budesonide/Formoterol 160/4.5 1 PUFF INH IH SCH ×2 (09:47→22:44)
--- NOTE | 2018-10-29 16:28 | Event Note ---
Date of Encounter: 10/29/18 Time of Encounter: 12:20 PCR - POD#2 s/p Left Total Hip Replacment robotic-assisted 10/27/18 Patient seen at bedside, without complaints. A&O x 3 Afebrile, vital signs stable. Dressings c/d/i. LINDA drain removed today. Dressings have some drainage over this site. Continue with pressure dressing. Labs reviewed. H/H - 9.4/27.6 stable, asymptomatic Pain control: inadequate, will add lidoderm patch but otherwise leave rest of pain control to primary team. patient states he does not want "strong stuff" due to his history of drug abuse Participating in PT. All questions and concerns addressed. Educated on use of incentive spirometer. Encouraged ambulation and proper hydration. Patient educated on post-operative restrictions and post-operative care. Assessment and plan: Continue with postoperative care Discharge plan: ECF, awaiting acceptance to [facility], likely thursday Instructions to include in ECF continuity: Opsite dressing, leave intact until first post-operative visit. If dressing becomes >50% saturated, contact office, remove dressing and place appropriate dressing in its place. Do not allow for dressing to get wet. Zipline/Vicente in place, plan to remove at post-operative day #14-16. Total Joint Precautions x 6 weeks Apply cold therapy wrap 3-6x/day for 20 minutes at a time. Encourage ambulation throughout the day Use Incentive spirometer 10x/hour. Elevate affected extremity above heart as tolerated. Brace: Wear hip abductor brace at night x 6 weeks.
--- NOTE | 2018-10-29 16:42 | Internal Med Progress Note ---
Hospitalist Progress Note - Encounter Date of Encounter: 10/29/18 Time of Encounter: 16:39 - Subjective Interval History: Pt continues to complain of pain. Does get some relief with toradol and tylenol but not fully. Discussed with pt about goals to decrease, not eliminate, pain. Worked with PT. LINDA drain removed from Ortho. - Exam Vitals: Temp Pulse Resp BP Pulse Ox 98.6 F 94 18 142/72 94 10/29/18 12:30 10/29/18 12:30 10/29/18 15:23 10/29/18 12:30 10/29/18 15:23 Exam: General: NAD, good eye contact, uncomfortable Thoracic: does have expiratory wheezing slightly improved today Cardio: Normal S1 and S2, regular rate and rhythm Abdomen: Soft, nontender, nondistended Extremities: Warm, well perfused. DP pulses 2+ b/l. No edema. L lateral thigh with 3 incisions dressed c/d/i Neuro: Awake, fully oriented. Speech fluent - Summary of Assessment and Plan Summary of Assessment and Plan: Marcus Cdoy is a 48 M w hx smoker, polysubstance abuse including IVDA, COPD, obesity, who p/w L hip pain after a fall, XR showing broken L hip, taken to OR 10/27 by Ortho for L TARUN. L hip fx s/p TARUN 10/27: - Ortho following, appreciate recs, drain removed today - start xarelto 10 daily, through 11/23 - PT/OT working w patient - pain control as below COPD: new dx for patient, will need outpatient f/u and PFTs - no steroids due to surgery above - continue nebs and azithro Acute blood loss anemia: following surgery, not symptomatic, will monitor Smoker: nicotine patch offered Hx IVDA and polysubstance abuse (heroin, meth): currently in group residence for drug treatment, will significantly limit opioids today now pt is post-op - start tylenol 1g qid prn first line - start toradol 15 q6h second line - oxy to 5 q6h prn breakthrough Per PT/OT, plan for d/c to SNF for rehab prior to returning back to group drug rehab facility, per SW will not occur until Thursday - Time Spent with Patient Total time spent is greater than 50% in coordination of care (as documented) at patient's floor/unit and/or counseling patient: Internal Medicine: Result - Labs CBC & Chem 7: 10/29/18 04:05 10/29/18 04:05 Labs: Short CBC 10/29/18 Range/Units 04:05 WBC 9.0 (4.3-11.1) K/mcL Hgb 9.4 L (12.9-16.9) g/dL Hct 27.6 L (37.5-50.1) % Plt Count 154 (140-400) K/mcL BMP 10/29/18 04:05 Sodium 138 Potassium 3.8 Chloride 105 Carbon Dioxide 26 BUN 17 Creatinine 0.74 Glucose 107 H Calcium 7.8 L - VTE Documentation of Mechanical Device: Venous foot pump, device Consult Discharge Plan - Plan Referrals: NONE,PCP [Primary Care Provider] -
[2018-10-30] MEDS: Ketorolac 15 MG/ML VIAL IVP PRN ×3 (02:00→21:36)
[2018-10-30] MEDS: OXYCODONE Oral CONC 10 MG/0.5 ML ORAL.SYG SL PRN ×3 (03:37→15:58)
[2018-10-30] MEDS: Ipratropium/Albuterol Neb 3 ML IH SCH ×4 (04:02→23:40)
[2018-10-30] MEDS: *HR* Rivaroxaban 10 MG TABLET PO SCH ×2 (06:44→17:17)
[2018-10-30 06:56] LABS: Hematocrit 27.1 % (37.5-50.1); Hemoglobin 9.2 g/dL (12.9-16.9)
[2018-10-30] MEDS: Furosemide 20 MG TABLET PO SCH (08:18)
[2018-10-30] MEDS: Ascorbic Acid 500 MG TABLET PO SCH ×2 (08:18→17:17)
[2018-10-30] MEDS: Acetaminophen 325 MG TABLET PO SCH ×4 (08:18→20:01)
[2018-10-30] MEDS: Multivit/Ca/Min/Fe/FA 1 TAB TABLET PO SCH (08:18)
[2018-10-30] MEDS: Azithromycin 250 MG TABLET PO SCH (08:19)
[2018-10-30] MEDS: Budesonide/Formoterol 160/4.5 1 PUFF INH IH SCH ×2 (10:22→23:40)
[2018-10-30] MEDS: Nicotine 14 MG PATCH.TD24 TD SCH (11:20)
--- NOTE | 2018-10-30 13:59 | Internal Med Progress Note ---
Hospitalist Progress Note - Encounter Date of Encounter: 10/30/18 Time of Encounter: 13:57 - Subjective Interval History: Pt continues to complain of pain, different reason each day but always complaining. Mentions that he was able to ambulate to bathroom yesterday without too much distress. No abd pain or diarrhea. No bleeding from incisions. SOB and wheezing resolved. - Exam Vitals: Temp Pulse Resp BP Pulse Ox 97.9 F 79 17 120/74 96 10/30/18 10:59 10/30/18 10:59 10/30/18 10:59 10/30/18 10:59 10/30/18 10:59 Exam: General: NAD, good eye contact, uncomfortable Thoracic: no wheezing today, lungs clear Cardio: Normal S1 and S2, regular rate and rhythm Abdomen: Soft, nontender, nondistended Extremities: Warm, well perfused. DP pulses 2+ b/l. No edema. L lateral thigh with 3 incisions dressed c/d/i Neuro: Awake, fully oriented. Speech fluent - Summary of Assessment and Plan Summary of Assessment and Plan: Marcus Cody is a 48 M w hx smoker, polysubstance abuse including IVDA, COPD, obesity, who p/w L hip pain after a fall, XR showing broken L hip, taken to OR 10/27 by Ortho for L TARUN. L hip fx s/p TARUN 10/27: improving - Ortho following, appreciate recs - start xarelto 10 daily, through 11/23 - PT/OT working w patient - pain control as below COPD: new dx for patient, will need outpatient f/u and PFTs, improved - no steroids due to surgery above - continue nebs and azithro Acute blood loss anemia: following surgery, not symptomatic, will monitor Smoker: nicotine patch offered Hx IVDA and polysubstance abuse (heroin, meth): currently in group residence for drug treatment, will significantly limit opioids today now pt is post-op - start tylenol 1g qid prn first line - start toradol 15 q6h second line - oxy to 5 q6h prn breakthrough Per PT/OT, plan for d/c to SNF for rehab prior to returning back to group drug rehab facility, per SW will not occur until Thursday - Time Spent with Patient Total time spent is greater than 50% in coordination of care (as documented) at patient's floor/unit and/or counseling patient: Internal Medicine: Result - Labs CBC & Chem 7: 10/30/18 06:35 10/29/18 04:05 Labs: Short CBC 10/30/18 Range/Units 06:35 Hgb 9.2 L (12.9-16.9) g/dL Hct 27.1 L (37.5-50.1) % - VTE Documentation of Mechanical Device: Venous foot pump, device Consult Discharge Plan - Plan Referrals: NONE,PCP [Primary Care Provider] -
[2018-10-31] MEDS: OXYCODONE Oral CONC 10 MG/0.5 ML ORAL.SYG SL PRN ×4 (00:26→22:08)
[2018-10-31] MEDS: Ketorolac 15 MG/ML VIAL IVP PRN ×3 (03:51→18:53)
[2018-10-31] MEDS: Ipratropium/Albuterol Neb 3 ML IH SCH ×4 (04:40→22:16)
--- NOTE | 2018-10-31 06:36 | Orthopedics Progress Note ---
Date of Encounter: 10/31/18 Time of Encounter: 06:36 - Assessment and Plan (1) Acute blood loss anemia Current Visit: Yes Status: Acute Subjective Interval history: Patient was seen this morning doing well without complaints. Afebrile vital signs stable. Operative extremity: Neurovascularly intact Dressing minimal drainage dry and intact Calves nontender Assessment and plan: Continue with postoperative care Awaiting placement Objective Vital signs: Vital Signs Temp Pulse Resp BP Pulse Ox 10/31/18 04:41 18 94 10/31/18 02:20 98.0 F 79 18 120/64 97 10/30/18 23:42 18 95 10/30/18 22:32 97.6 F 80 20 105/64 97 10/30/18 20:14 98.2 F 85 19 114/65 96 10/30/18 16:05 16 108/64 94 10/30/18 15:38 97.9 F 85 18 108/64 93 10/30/18 10:59 97.9 F 79 17 120/74 96 10/30/18 10:20 16 112/71 96 10/30/18 07:23 97.7 F 86 18 112/71 97 Intake and Output 10/30/18 10/30/18 10/31/18 15:59 23:59 07:59 Intake Total 950 / 950 Output Total 400 / 400 350 / 350 Balance -400 / -400 600 / 600 Intake: Oral 950 / 950 Output: Urine 400 / 400 350 / 350 Other: Weight 127.4 kg Patient Weight 10/31/18 23:59 Weight 127.4 kg - Labs CBC & BMP: 10/30/18 06:35 10/29/18 04:05 Labs: Abnormal lab results RBC 3.11 M/mcL (4.19-5.50) L 10/29/18 04:05 Hgb 9.2 g/dL (12.9-16.9) L 10/30/18 06:35 Hct 27.1 % (37.5-50.1) L 10/30/18 06:35 MPV 9.2 fL (9.4-12.4) L 10/29/18 04:05 Glucose 107 mg/dL (70-105) H 10/29/18 04:05 POC Glucose 139 mg/dL (70-99) H 10/30/18 22:31 Calcium 7.8 mg/dL (8.6-10.3) L 10/29/18 04:05 Ur Specific [place] 1.027 (1.010-1.025) H 10/28/18 08:10 Urine Glucose (UA) >=1000 mg/dL (Normal) H 10/28/18 08:10 - VTE Documentation of Mechanical Device: Venous foot pump, device Consult Discharge Plan - Plan Referrals: NONE,PCP [Primary Care Provider] -
[2018-10-31 07:10] LABS: Hemoglobin 9.7 g/dL (12.9-16.9); Mean Corpuscular HGB Conc 33.4 g/dL (31.6-35.5); Mean Corpuscular Hemoglobin 29.7 pg (28.0-33.3); Mean Corpuscular Volume 88.7 fL (83.0-100.0); Mean Platelet Volume 8.7 fL (9.4-12.4); Platelet Count 173 K/mcL (140-400); Red Blood Count 3.27 M/mcL (4.19-5.50); Red Cell Distribution Width 13.5 % (11.5-14.5)
[2018-10-31 07:28] LABS: BUN/Creatinine Ratio 24 (6-26); Blood Urea Nitrogen 17 mg/dL (6-20); Calcium 8.5 mg/dL (8.6-10.3); Carbon Dioxide 27 mEq/L (23-29); Chloride 103 mEq/L (98-107); Glucose 110 mg/dL (70-105); Osmolality,Calculated 282 (280-300); Potassium 4.1 mEq/L (3.5-5.1); Sodium 135 mEq/L (136-145); eGFR For Non-African Americans > 60 (> 60)
[2018-10-31] MEDS: Ascorbic Acid 500 MG TABLET PO SCH ×2 (08:22→15:53)
[2018-10-31] MEDS: Furosemide 20 MG TABLET PO SCH (08:23)
[2018-10-31] MEDS: Acetaminophen 325 MG TABLET PO SCH (08:23)
[2018-10-31] MEDS: Multivit/Ca/Min/Fe/FA 1 TAB TABLET PO SCH (08:23)
[2018-10-31] MEDS: Nicotine 14 MG PATCH.TD24 TD SCH (08:24)
[2018-10-31] MEDS: Budesonide/Formoterol 160/4.5 1 PUFF INH IH SCH ×2 (10:00→22:14)
--- NOTE | 2018-10-31 11:11 | Internal Med Progress Note ---
Hospitalist Progress Note - Encounter Date of Encounter: 10/31/18 Time of Encounter: 11:08 - Subjective Interval History: Pt says he actually feels a lot better today. Still minor pain. Is sitting up comfortably in chair and has recently showered. Says he can more easily weight bear. No more SOB/wheezing. No constipation. - Exam Vitals: Temp Pulse Resp BP Pulse Ox 97.8 F 81 18 115/73 99 10/31/18 07:06 10/31/18 07:06 10/31/18 10:01 10/31/18 07:06 10/31/18 10:01 Exam: General: NAD, good eye contact, comfortable Thoracic: no wheezing today, lungs clear Cardio: Normal S1 and S2, regular rate and rhythm Abdomen: Soft, nontender, nondistended Extremities: Warm, well perfused. DP pulses 2+ b/l. No edema. L lateral thigh with 3 incisions dressed c/d/i Neuro: Awake, fully oriented. Speech fluent - Summary of Assessment and Plan Summary of Assessment and Plan: Marcus Cody is a 48 M w hx smoker, polysubstance abuse including IVDA, COPD, obesity, who p/w L hip pain after a fall, XR showing broken L hip, taken to OR 10/27 by Ortho for L TARUN. L hip fx s/p TARUN 10/27: improving daily - Ortho following, appreciate recs - start xarelto 10 daily, through 11/23 - PT/OT working w patient - pain control as below COPD: new dx for patient, will need outpatient f/u and PFTs, improved - no steroids due to surgery above - continue nebs and azithro Acute blood loss anemia: following surgery, not symptomatic, will monitor Smoker: nicotine patch offered Hx IVDA and polysubstance abuse (heroin, meth): currently in group residence for drug treatment, will significantly limit opioids today now pt is post-op - tylenol 1g qid prn first line - toradol 15 q6h second line - oxy to 5 q6h prn breakthrough PPx: xarelto as above FEN: regular, no MIVF Lines: PIV Consults: Ortho Code: Full Dispo: Per PT/OT, plan for d/c to SNF for rehab prior to returning back to group drug rehab facility, per SW will not occur until Thursday - Time Spent with Patient Total time spent is greater than 50% in coordination of care (as documented) at patient's floor/unit and/or counseling patient: Internal Medicine: Result - Labs CBC & Chem 7: 10/31/18 06:55 10/31/18 06:55 Labs: Short CBC 10/31/18 Range/Units 06:55 WBC 7.2 (4.3-11.1) K/mcL Hgb 9.7 L (12.9-16.9) g/dL Hct 29.0 L (37.5-50.1) % Plt Count 173 (140-400) K/mcL BMP 10/31/18 06:55 Sodium 135 L Potassium 4.1 Chloride 103 Carbon Dioxide 27 BUN 17 Creatinine 0.70 Glucose 110 H Calcium 8.5 L - VTE Documentation of Mechanical Device: Venous foot pump, device Consult Discharge Plan - Plan Referrals: NONE,PCP [Primary Care Provider] -
[2018-10-31] MEDS: *HR* Rivaroxaban 10 MG TABLET PO SCH (15:53)
[2018-11-01] MEDS: Ketorolac 15 MG/ML VIAL IVP PRN (00:54)
[2018-11-01] MEDS: Ipratropium/Albuterol Neb 3 ML IH SCH ×4 (04:38→22:34)
[2018-11-01] MEDS: OXYCODONE Oral CONC 10 MG/0.5 ML ORAL.SYG SL PRN ×3 (06:52→21:14)
[2018-11-01 07:05] LABS: Basophils # 0.1 K/mcL (0.0-0.2); Basophils % 0.8 %; Eosinophils # 0.3 K/mcL (0.0-0.6); Eosinophils % 4.1 %; Hematocrit 28.5 % (37.5-50.1); Hemoglobin 9.5 g/dL (12.9-16.9); Immature Granulocytes % 1.5 % (0-4); Lymphocytes # 2.2 K/mcL (0.6-4.6); Lymphocytes % 35.4 %; Mean Corpuscular HGB Conc 33.3 g/dL (31.6-35.5); Mean Corpuscular Hemoglobin 29.3 pg (28.0-33.3); Mean Platelet Volume 8.7 fL (9.4-12.4); Monocytes # 0.6 K/mcL (0.0-1.3); Monocytes % 9.8 %; Platelet Count 185 K/mcL (140-400); Red Blood Count 3.24 M/mcL (4.19-5.50); Red Cell Distribution Width 13.5 % (11.5-14.5); Segmented Neutrophils % 48.4 %
[2018-11-01 07:22] LABS: BUN/Creatinine Ratio 29 (6-26); Blood Urea Nitrogen 20 mg/dL (6-20); Calcium 8.8 mg/dL (8.6-10.3); Carbon Dioxide 27 mEq/L (23-29); Chloride 105 mEq/L (98-107); Glucose 108 mg/dL (70-105); Osmolality,Calculated 287 (280-300); Sodium 137 mEq/L (136-145); eGFR For Non-African Americans > 60 (> 60)
[2018-11-01] MEDS: Multivit/Ca/Min/Fe/FA 1 TAB TABLET PO SCH (09:00)
[2018-11-01] MEDS: Ascorbic Acid 500 MG TABLET PO SCH ×2 (09:00→16:40)
[2018-11-01] MEDS: Furosemide 20 MG TABLET PO SCH (09:00)
[2018-11-01] MEDS: Nicotine 14 MG PATCH.TD24 TD SCH (09:01)
--- NOTE | 2018-11-01 09:44 | Orthopedics Progress Note ---
Date of Encounter: 11/01/18 Time of Encounter: 09:44 - Assessment and Plan (1) Acute blood loss anemia Current Visit: Yes Status: Acute Subjective Interval history: Patient was seen this morning doing well without complaints. Afebrile vital signs stable. Operative extremity: Neurovascularly intact Dressing minimal drainage dry and intact Calves nontender Assessment and plan: Continue with postoperative care Awaiting placement left leg swelling, checked Doppler [place] discharge Objective Vital signs: Vital Signs Temp Pulse Resp BP Pulse Ox 11/01/18 06:43 97.5 F L 77 17 115/76 97 11/01/18 04:38 14 99 11/01/18 03:20 98.3 F 71 18 119/71 97 10/31/18 23:17 99.4 F 89 18 110/73 97 10/31/18 22:15 14 98 10/31/18 18:20 98.9 F 99 18 125/65 96 10/31/18 15:56 18 98 10/31/18 15:27 98.3 F 80 18 111/70 93 10/31/18 11:07 98.7 F 84 18 135/81 94 10/31/18 10:01 18 99 Intake and Output 10/31/18 11/01/18 11/01/18 23:59 07:59 15:59 Intake Total 800 / 800 350 / 350 Output Total 350 / 350 325 / 325 Balance 450 / 450 25 / 25 Intake: Oral 800 / 800 350 / 350 Output: Urine 350 / 350 325 / 325 Other: Meal Dinner Percent of Meal Consumed 95% Stool Size Large Stool Consistency formed Stool Color Brown # Voids 1 # Bowel Movements 1 Weight 128 kg Patient Weight 11/01/18 23:59 Weight 128 kg - Labs CBC & BMP: 11/01/18 06:51 11/01/18 06:51 Labs: Abnormal lab results RBC 3.24 M/mcL (4.19-5.50) L 11/01/18 06:51 Hgb 9.5 g/dL (12.9-16.9) L 11/01/18 06:51 Hct 28.5 % (37.5-50.1) L 11/01/18 06:51 MPV 8.7 fL (9.4-12.4) L 11/01/18 06:51 BUN/Creatinine Ratio 29 (6-26) H 11/01/18 06:51 Glucose 108 mg/dL (70-105) H 11/01/18 06:51 POC Glucose 139 mg/dL (70-99) H 10/30/18 22:31 Ur Specific [place] 1.027 (1.010-1.025) H 10/28/18 08:10 Urine Glucose (UA) >=1000 mg/dL (Normal) H 10/28/18 08:10 - VTE Documentation of Mechanical Device: Venous foot pump, device Consult Discharge Plan - Plan Referrals: NONE,PCP [Primary Care Provider] -
[2018-11-01] MEDS: Acetaminophen 325 MG TABLET PO PRN ×2 (09:58→19:36)
[2018-11-01] MEDS: Budesonide/Formoterol 160/4.5 1 PUFF INH IH SCH ×2 (11:12→22:34)
--- NOTE | 2018-11-01 11:26 | Physician Discharge Referral ---
ExtendedCare Referral Info Transfer To: ECF Provider in Charge: - s/p Left THR Provider in Charge after Transfer: PCP Institutional Level of Care: Skilled - Diagnosis (1) Status post total hip replacement, left Priority: Primary Status: Acute (2) Fracture of hip Priority: Primary Status: Acute (3) History of fall Priority: Primary Status: Acute Expected Duration of Placement: < 30 days Prognosis: Good Aware of Diagnosis: Patient Aware of Prognosis: Patient - Transfer Medications Home Medications: Sertraline [Zoloft] 50 mg PO DAILY 07/11/18 [History] Furosemide [Lasix] 20 mg PO DAILY #31 tablet 09/28/18 [Rx] Albuterol Sulfate [Ventolin Hfa] 2 puff IH Q6H PRN 10/28/18 [History] Budesonide/Formoterol 160/4.5 [Symbicort] 2 puff IH BID 10/28/18 [History] Allergies/Adverse Reactions: Allergy/AdvReac Type Severity Reaction Status Date / Time morphine Allergy "RASH ALL Verified 10/28/18 13:52 OVER, NAUSEA, VOMITING" - Respiratory Orders Smoking Cessation: Smoking cessation has been advised. For more information, call the [place] Tobacco Quit Line at 1-097-PPRC-NOW. - Mobility Orders Chair, Ambulate - Rehabiliation Orders Rehab Potential: Good Rehab Orders: ROM Exercises, Evaluation for Physical Therapy, Evaluation for Occupational Therapy Other: Orthopedic orders: Opsite dressing, leave intact until first post-operative visit. If dressing becomes >50% saturated, contact office, remove dressing and place appropriate dressing in its place. Do not allow for dressing to get wet. Zipline/Vicente in place, plan to remove at post-operative day #14-16. Drain incision: 4x4 and medipore tape - assess daily. Total Joint Precautions x 6 weeks Apply cold therapy wrap 3-6x/day for 20 minutes at a time. Encourage ambulation throughout the day Use Incentive spirometer 10x/hour. Elevate affected extremity above heart as tolerated. Brace: Wear hip abductor brace at night x 6 weeks. - Treatments List/Other: Orthopedic orders: Opsite dressing, leave intact until first post-operative visit. If dressing becomes >50% saturated, contact office, remove dressing and place appropriate dressing in its place. Do not allow for dressing to get wet. Zipline/[place] in place, plan to remove at post-operative day #14-16. Drain incision: 4x4 and medipore tape - assess daily. Total Joint Precautions x 6 weeks Apply cold therapy wrap 3-6x/day for 20 minutes at a time. Encourage ambulation throughout the day Use Incentive spirometer 10x/hour. Elevate affected extremity above heart as tolerated. Brace: Wear hip abductor brace at night x 6 weeks. CERTIFICATION: I certify that the transfer of the above named patient to an Extended Care Facility is necessary for the continuing treatment of the diagnosis listed. The above information is true and accurate reflection of patient's current condition. Confidential - Redisclosure prohibited without a patient's written consent.
--- NOTE | 2018-11-01 13:33 | Discharge Summary ---
- NOTES TO OUTPATIENT PROVIDER Notes to Outpatient Provider: Fall resulting in broken L hip. Repaired surgically. Going to rehab. Also needs outpatient PFTs for likely COPD. Date of Encounter: 11/01/18 Time of Encounter: 13:25 - Discharge Diagnosis (1) Status post total hip replacement, left Priority: Secondary Status: Acute (2) Fracture of hip Priority: Primary Status: Acute Qualifiers: Encounter type: initial encounter Fracture type: closed Laterality: left Qualified Code(s): S72.002A - Fracture of unspecified part of neck of left femur, initial encounter for closed fracture Hospital course: Dear Doctors, I recently had the opportunity to care for this patient during their hospital stay at [facility]. Marcus Cody is a 48 M w hx smoker, polysubstance abuse including IVDA, COPD, obesity, who presented at time of admission with L hip pain after a fall off a bunk bed (pt living in group rehab home for drug users). In the ED, XR showing broken L hip, taken to OR 10/27 by Ortho for L TARUN. In the hospital, the patient improved post-op and will discharge to SNF for ongoing rehab. On Xarelto 10 for dvt ppx for 30 days. Hospital course complicated by acute exacerbation of COPD which improved with nebs and azithro. He was encouraged to stop smoking and patches provided. Diagnoses: L hip fx, copd in acute exacerbation, smoker, acute blood loss anemia (mild) following surgery Follow up: per SNF, Ortho 2 weeks Med changes: tylenol for pain, xarelto 10 daily ending 11/21 Mental status: awake, fully oriented Code status: contracting manager spent on discharge: 25 minutes It has been my pleasure participating in this patient's care. Please contact me with any questions or concerns regarding their hospital stay. Sincerely, Villa Aguilar MD - Time Spent with Patient Total time spent providing and/or coordinating discharge services: - Discharge Medications Prescriptions: Acetaminophen [Tylenol] 975 mg PO Q6HR PRN #1 tablet PRN Reason: Pain Nicotine Patch [Nicoderm] 14 mg TD DAILY #30 patch.td24 Rivaroxaban [Xarelto] 10 mg PO 1700 #20 tablet Home Medications: Sertraline [Zoloft] 50 mg PO DAILY 07/11/18 [History] Furosemide [Lasix] 20 mg PO DAILY #31 tablet 09/28/18 [Rx] Albuterol Sulfate [Ventolin Hfa] 2 puff IH Q6H PRN 10/28/18 [History] Budesonide/Formoterol 160/4.5 [Symbicort 160/4.5] 2 puff IH BID 10/28/18 [History] Acetaminophen [Tylenol] 975 mg PO Q6HR PRN #1 tablet 11/01/18 [Rx] Nicotine Patch [Nicoderm] 14 mg TD DAILY #30 patch.td24 11/01/18 [Rx] Rivaroxaban [Xarelto] 10 mg PO 1700 #20 tablet 11/01/18 [Rx] Allergies/Adverse Reactions: Allergy/AdvReac Type Severity Reaction Status Date / Time morphine Allergy "RASH ALL Verified 10/28/18 13:52 OVER, NAUSEA, VOMITING" Date of admission: 10/27/18 13:30 Primary care physician: PCP NONE Consults: 10/27/18 18:51 Consult to Nurse Navigator [CONS] Routine Comment: ortho navigator Consult to Occupational Therapy [CONS] Routine Comment: Evaluate, develop and implement POC Reason for Consult: total hip replacement Does patient have active BEDREST order?: No Is patient medically & hemodynamically stable?: Yes Consult to Physical Therapy [CONS] Routine Comment: Evaluate, develop and implement POC Reason for Consult: total hip replacement Does patient have active BEDREST order?: No Is patient medically & hemodynamically stable?: Yes Consult to Box Office Manager [CONS] Routine Reason for SW Consult: post op joint replacement RT Post Op Consult [CONS] Routine - Constitutional Vitals: Temp Pulse Resp BP Pulse Ox 97.9 F 89 16 127/75 97 11/01/18 11:12 11/01/18 11:12 11/01/18 11:12 11/01/18 11:12 11/01/18 11:12 General appearance: Present: A&O X 3, severe distress Exam: General: NAD, good eye contact, comfortable Thoracic: no wheezing today, lungs clear Cardio: Normal S1 and S2, regular rate and rhythm Abdomen: Soft, nontender, nondistended Extremities: Warm, well perfused. DP pulses 2+ b/l. No edema. L lateral thigh with 3 incisions dressed c/d/i Neuro: Awake, fully oriented. Speech fluent - Patient Status Disposition: Transfer SNF Condition: Fair Functional capacity at discharge: uses cane/walker Overall status at discharge: patient is back to baseline - Discharge Instructions Follow Up With: NONE,PCP [Primary Care Provider] - Additional Instructions: Needs Ortho follow up 2 weeks - Diet and Activity Activity: as per physical therapy Diet: advance to your usual diet - VTE Documentation of Mechanical Device: Venous foot pump, device
[2018-11-01] MEDS: *HR* Rivaroxaban 10 MG TABLET PO SCH (16:40)
[2018-11-02] MEDS: OXYCODONE Oral CONC 10 MG/0.5 ML ORAL.SYG SL PRN ×3 (03:08→17:35)
[2018-11-02] MEDS: Ipratropium/Albuterol Neb 3 ML IH SCH ×4 (04:48→22:22)
--- NOTE | 2018-11-02 08:05 | Orthopedics Progress Note ---
Date of Encounter: 11/02/18 Time of Encounter: 08:04 - Assessment and Plan (1) Acute blood loss anemia Current Visit: Yes Status: Acute Subjective Interval history: Patient was seen this morning doing well without complaints. Afebrile vital signs stable. Operative extremity: Neurovascularly intact Dressing minimal drainage dry and intact Calves nontender Assessment and plan: Continue with postoperative care Discharged today Objective Vital signs: Vital Signs Temp Pulse Resp BP Pulse Ox 11/02/18 07:13 14 98 11/02/18 06:32 97.9 F 77 16 112/63 95 11/02/18 04:48 16 94 11/02/18 03:16 98.0 F 67 17 107/53 96 11/01/18 23:09 98.5 F 95 17 132/73 95 11/01/18 22:35 16 97 11/01/18 19:15 98.6 F 95 15 104/54 94 11/01/18 16:16 98.3 F 94 16 117/74 94 11/01/18 16:03 16 94 11/01/18 11:12 97.9 F 89 16 127/75 97 Intake and Output 11/01/18 11/02/18 11/02/18 23:59 07:59 15:59 Intake Total 360 / 360 200 / 200 Output Total 1400 / 1400 350 / 350 Balance -1040 / -1040 -150 / -150 Intake: Oral 360 / 360 200 / 200 Output: Urine 1400 / 1400 350 / 350 Other: Meal Dinner Percent of Meal Consumed 100% # Voids 1 - Labs CBC & BMP: 11/01/18 06:51 11/01/18 06:51 Labs: Abnormal lab results RBC 3.24 M/mcL (4.19-5.50) L 11/01/18 06:51 Hgb 9.5 g/dL (12.9-16.9) L 11/01/18 06:51 Hct 28.5 % (37.5-50.1) L 11/01/18 06:51 MPV 8.7 fL (9.4-12.4) L 11/01/18 06:51 BUN/Creatinine Ratio 29 (6-26) H 11/01/18 06:51 Glucose 108 mg/dL (70-105) H 11/01/18 06:51 POC Glucose 139 mg/dL (70-99) H 10/30/18 22:31 Ur Specific [place] 1.027 (1.010-1.025) H 10/28/18 08:10 Urine Glucose (UA) >=1000 mg/dL (Normal) H 10/28/18 08:10 - VTE Documentation of Mechanical Device: Venous foot pump, device Consult Discharge Plan - Plan Additional Instructions: Needs Ortho follow up 2 weeks Referrals: NONE,PCP [Primary Care Provider] - Prescriptions: Acetaminophen [Tylenol] 975 mg PO Q6HR PRN #1 tablet PRN Reason: Pain Nicotine Patch [Nicoderm] 14 mg TD DAILY #30 patch.td24 Rivaroxaban [Xarelto] 10 mg PO 1700 #20 tablet
[2018-11-02] MEDS: Furosemide 20 MG TABLET PO SCH (08:27)
[2018-11-02] MEDS: Acetaminophen 325 MG TABLET PO PRN ×3 (08:27→21:17)
[2018-11-02] MEDS: Nicotine 14 MG PATCH.TD24 TD SCH (08:27)
[2018-11-02] MEDS: Ascorbic Acid 500 MG TABLET PO SCH ×2 (08:28→17:34)
[2018-11-02] MEDS: Multivit/Ca/Min/Fe/FA 1 TAB TABLET PO SCH (08:28)
[2018-11-02] MEDS: Budesonide/Formoterol 160/4.5 1 PUFF INH IH SCH ×2 (10:09→22:22)
--- NOTE | 2018-11-02 11:54 | Internal Med Progress Note ---
Hospitalist Progress Note - Encounter Date of Encounter: 11/02/18 Time of Encounter: 11:54 - Subjective Interval History: Was seen and examined at bedside currently complains of left knee pain. He is able to bend his knee however he states it feels tight and there is bruising. Hip pain is controlled at this time awaiting authorization of insurance for rehabilitation anticipate discharge - Exam Vitals: Temp Pulse Resp BP Pulse Ox 97.9 F 77 16 112/63 90 11/02/18 06:32 11/02/18 06:32 11/02/18 10:08 11/02/18 06:32 11/02/18 10:08 Exam: General: NAD, good eye contact, comfortable Thoracic: no wheezing today, lungs clear Cardio: Normal S1 and S2, regular rate and rhythm Abdomen: Soft, nontender, nondistended Extremities: Warm, well perfused. DP pulses 2+ b/l. Left knee with swelling and tenderness. L lateral thigh with 3 incisions dressed c/d/i Neuro: Awake, fully oriented. Speech fluent - Assessment and Plan (1) Impacted fracture of left hip Current Visit: Yes Status: Acute Assessment and Plan: Pt presented to ED after fall from a top bunk which resulted in L hip fracture Transferred to [facility] for orthopedic care. Currently only issue is pain. Admit to med surg NPO for surgery today. Pain control - opiates ordered. 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 Anticipate will need skilled rehab following surgery. 11/11 Patient was seen and examined today left hip with dressing intact no drainage noted patient states he did have some drainage overnight evaluated per orthopedics-left extremity is warm and pink with good capillary refill he does complain of left knee pain Continue with current pain control-opiates have been ordered patient clinical shoe repair supervisor at drug rehabilitation facility are aware of risk of doing this-I will discharge patient with 2 day of [place]-since he will will be monitored at the [facility] for pain management (2) Fall involving bunk bed as cause of accidental injury Current Visit: Yes Status: Acute Assessment and Plan: Pt fell from top bunk this AM resulting in hip fracture. See above. 11/11 No change from above (3) COPD (chronic obstructive pulmonary disease) Current Visit: Yes Status: Suspected Assessment and Plan: Pt has not been diagnosed with COPD in the past but clinically appears to be present. He has had progressive dyspnea over last month with associated wheezing. CXR negative EKG normal Will start Azithromycin for antiinflammatory effect Steroids IV today and follow with 4 days of PO prednisone Duonebs ordered. Echo ordered due to edema (? related to pulmonary HTN/R heart failure). 11/11 Currently stable at this time no wheezing noted (4) NEIDA (obstructive sleep apnea) Current Visit: Yes Status: Suspected Assessment and Plan: Pt relates snorning and apnea. Will need at least nocturnal oxygen study prior to discharge. (5) Tobacco abuse Current Visit: Yes Status: Chronic Assessment and Plan: Nicotine patch ordered. Cessation counselling. - Time Spent with Patient Total time spent is greater than 50% in coordination of care (as documented) at patient's floor/unit and/or counseling patient: Internal Medicine: Result - Labs CBC & Chem 7: 11/02/18 12:12 11/02/18 12:12 - VTE Documentation of Mechanical Device: Venous foot pump, device Consult Discharge Plan - Plan Additional Instructions: Needs Ortho follow up 2 weeks Referrals: NONE,PCP [Primary Care Provider] - Prescriptions: Acetaminophen [Tylenol] 975 mg PO Q6HR PRN #1 tablet PRN Reason: Pain HYDROcodone/Acet 5/325 mg [[place] 5-325 mg] 1 tab PO Q6H PRN 2 Days #8 tab PRN Reason: Pain Nicotine Patch [Nicoderm] 14 mg TD DAILY #30 patch.td24 Rivaroxaban [Xarelto] 10 mg PO 1700 #20 tablet (1) Impacted fracture of left hip Qualifiers: Encounter type: initial encounter Fracture type: closed Qualified Code(s): S72.092A - Other fracture of head and neck of left femur, initial encounter for closed fracture (3) COPD (chronic obstructive pulmonary disease) Qualifiers: COPD type: COPD with acute exacerbation Qualified Code(s): J44.1 - Chronic obstructive pulmonary disease with (acute) exacerbation
[2018-11-02 12:31] LABS: Basophils % 0.5 %; Eosinophils # 0.2 K/mcL (0.0-0.6); Eosinophils % 2.9 %; Hematocrit 31.9 % (37.5-50.1); Hemoglobin 10.5 g/dL (12.9-16.9); Immature Granulocytes % 1.5 % (0-4); Lymphocytes # 2.1 K/mcL (0.6-4.6); Lymphocytes % 28.1 %; Mean Corpuscular HGB Conc 32.9 g/dL (31.6-35.5); Mean Corpuscular Hemoglobin 29.8 pg (28.0-33.3); Mean Corpuscular Volume 90.6 fL (83.0-100.0); Mean Platelet Volume 8.7 fL (9.4-12.4); Monocytes # 0.8 K/mcL (0.0-1.3); Monocytes % 10.4 %; Neutrophils # 4.1 K/mcL (1.6-8.9); Platelet Count 238 K/mcL (140-400); Red Blood Count 3.52 M/mcL (4.19-5.50); Red Cell Distribution Width 13.5 % (11.5-14.5); Segmented Neutrophils % 56.6 %
[2018-11-02 12:49] LABS: BUN/Creatinine Ratio 21 (6-26); Blood Urea Nitrogen 17 mg/dL (6-20); Calcium 9.2 mg/dL (8.6-10.3); Carbon Dioxide 28 mEq/L (23-29); Chloride 102 mEq/L (98-107); Glucose 103 mg/dL (70-105); Osmolality,Calculated 288 (280-300); Potassium 4.6 mEq/L (3.5-5.1); Sodium 138 mEq/L (136-145); eGFR For Non-African Americans > 60 (> 60)
[2018-11-02] MEDS: *HR* Rivaroxaban 10 MG TABLET PO SCH (17:34)
--- NOTE | 2018-11-02 18:58 | Event Note ---
Date of Encounter: 11/02/18 Time of Encounter: 17:00 Patient has been accepted at [facility] continues to complain of left knee pain x-ray to left knee with no fractures duplex completed yesterday shows no DVT-patient will be discharged with 2 days of pain medication [place] were sent for has been completed he will follow up with orthopedics as outpatient
[2018-11-03] MEDS: OXYCODONE Oral CONC 10 MG/0.5 ML ORAL.SYG SL PRN ×2 (01:37→08:09)
[2018-11-03] MEDS: Ipratropium/Albuterol Neb 3 ML IH SCH ×2 (04:16→10:29)
[2018-11-03 06:50] VITALS: BP 145/75
[2018-11-03] MEDS: Ascorbic Acid 500 MG TABLET PO SCH (07:54)
[2018-11-03] MEDS: Furosemide 20 MG TABLET PO SCH (07:54)
[2018-11-03] MEDS: Multivit/Ca/Min/Fe/FA 1 TAB TABLET PO SCH (07:54)
[2018-11-03] MEDS: Nicotine 14 MG PATCH.TD24 TD SCH (07:55)
[2018-11-03] MEDS: Budesonide/Formoterol 160/4.5 1 PUFF INH IH SCH (10:29)
--- NOTE | 2018-11-03 10:40 | Internal Med Progress Note ---
Hospitalist Progress Note - Encounter Date of Encounter: 11/03/18 Time of Encounter: 10:30 - Exam Vitals: Temp Pulse Resp BP Pulse Ox 97.6 F 83 15 145/75 96 11/03/18 06:48 11/03/18 06:48 11/03/18 06:48 11/03/18 06:48 11/03/18 06:48 Exam: General: NAD, good eye contact, comfortable Thoracic: no wheezing today, lungs clear Cardio: Normal S1 and S2, regular rate and rhythm Abdomen: Soft, nontender, nondistended Extremities: Warm, well perfused. DP pulses 2+ b/l. Left knee with swelling and tenderness. L lateral thigh with 3 incisions dressed c/d/i Neuro: Awake, fully oriented. Speech fluent - Assessment and Plan (1) Impacted fracture of left hip Current Visit: Yes Status: Acute Assessment and Plan: Pt presented to ED after fall from a top bunk which resulted in L hip fracture Transferred to [facility] for orthopedic care. Currently only issue is pain. Admit to med surg NPO for surgery today. Pain control - opiates ordered. Pt and clinical metal hanging supervisor at drug rehab facility are aware of the risks of doing this. Anticipate will need skilled rehab following surgery. 11/11 Patient was seen and examined today left hip with dressing intact no drainage noted patient states he did have some drainage overnight evaluated per orthopedics-left extremity is warm and pink with good capillary refill he does complain of left knee pain Continue with current pain control-opiates have been ordered patient clinical metal hanging supervisor at drug rehabilitation facility are aware of risk of doing this-I олге l discharge patient with 2 day of [place]-since he will will be monitored at the [facility] for pain management (2) Fall involving bunk bed as cause of accidental injury Current Visit: Yes Status: Acute Assessment and Plan: Pt fell from top bunk this AM resulting in hip fracture. See above. 11/11 No change from above (3) COPD (chronic obstructive pulmonary disease) Current Visit: Yes Status: Suspected Assessment and Plan: Pt has not been diagnosed with COPD in the past but clinically appears to be present. He has had progressive dyspnea over last month with associated wheezing. CXR negative EKG normal Will start Azithromycin for antiinflammatory effect Steroids IV today and follow with 4 days of PO prednisone Duonediogenes ordered. Echo ordered due to edema (? related to pulmonary HTN/R heart failure). 11/11 Currently stable at this time no wheezing noted (4) NEIDA (obstructive sleep apnea) Current Visit: Yes Status: Suspected Assessment and Plan: Pt relates snorning and apnea. Will need at least nocturnal oxygen study prior to discharge. (5) Tobacco abuse Current Visit: Yes Status: Chronic Assessment and Plan: Nicotine patch ordered. Cessation counselling. - Time Spent with Patient Total time spent is greater than 50% in coordination of care (as documented) at patient's floor/unit and/or counseling patient: Internal Medicine: Result - Labs CBC & Chem 7: 11/02/18 12:12 11/02/18 12:12 Labs: Short CBC 11/02/18 Range/Units 12:12 WBC 7.3 (4.3-11.1) K/mcL Hgb 10.5 L (12.9-16.9) g/dL Hct 31.9 L (37.5-50.1) % Plt Count 238 (140-400) K/mcL Neutrophils # 4.1 (1.6-8.9) K/mcL BMP 11/02/18 12:12 Sodium 138 Potassium 4.6 Chloride 102 Carbon Dioxide 28 BUN 17 Creatinine 0.80 Glucose 103 Calcium 9.2 - Impressions Impressions Knee X-Ray 11/02/18 15:22 IMPRESSION: Unremarkable radiographs left knee. Follow-up imaging recommended if pain persists or worsens following conservative management. D/ / Vladimir Wang / Vladimir Wang Interpreting Provider: Vladimir Wang - VTE Documentation of Mechanical Device: Venous foot pump, device Consult Discharge Plan - Plan Additional Instructions: Needs Ortho follow up 2 weeks Referrals: NONE,PCP [Primary Care Provider] - Prescriptions: Acetaminophen [Tylenol] 975 mg PO Q6HR PRN #1 tablet PRN Reason: Pain HYDROcodone/Acet 5/325 mg [[place] 5-325 mg] 1 tab PO Q6H PRN 2 Days #8 tab PRN Reason: Pain Nicotine Patch [Nicoderm] 14 mg TD DAILY #30 patch.td24 Rivaroxaban [Xarelto] 10 mg PO 1700 #20 tablet (1) Impacted fracture of left hip Qualifiers: Encounter type: initial encounter Fracture type: closed Qualified Code(s): S72.092A - Other fracture of head and neck of left femur, initial encounter for closed fracture (3) COPD (chronic obstructive pulmonary disease) Qualifiers: COPD type: COPD with acute exacerbation Qualified Code(s): J44.1 - Chronic o bstructive pulmonary disease with (acute) exacerbation
--- NOTE | 2018-11-03 17:24 | Event Note ---
Date of Encounter: 11/03/18 Time of Encounter: 16:00 Patient was discharged to SNF this am before I saw him
== END 2018-11-03 09:15 | DRG 470 ==
LOC: 3NENU → SUATTDRO 04:58
PROVIDERS: ADMIT Internal Medicine; ATTEND Internal Medicine